=== PATIENT | female | born 1990 | race African-American/Black ===

== ENCOUNTER 2017-06-09 16:37 | Inpatient (IN) | payer OTHER ==
[2017-06-09] VITALS (17 sets, daily range): BP systolic 99–138; BP diastolic 54–80; PULSE 75–115; TEMP 97.9–99
[~2017-06-09] VITALS: Ht 165.1 cm; Wt 106.8 kg
[2017-06-09] MEDS ORDERED: PRENATAL PO (17:11)
[2017-06-09 18:22] LABS: BASO % 0.2 % (0.0-2.0); EOS # 0.1 (0.0-0.7); EOS % 0.9 % (0-4.0); GRAN # 5.3 (1.4-6.5); GRAN % 66.5 % (42.2-75.2); LYMPH % 25.3 % (20.0-51.0); MEAN CELL VOLUME 80 fl (80.0-100.0); MEAN CORPUSCULAR HGB CONC 33 g/dl (33.0-37.0); MEAN PLATELET VOLUME 12.8 fl (7.4-10.4); MONO # 0.5 (0.1-0.6); MONO % 6.7 % (1.7-9.3); PLATELET COUNT 173 K/mm3 (130-400); RED BLOOD COUNT 4.23 M/mm3 (4.10-5.30); REDCELL DISTRIBUTION WIDTH-CV 18.2 % (11.5-14.5)
[2017-06-09 18:26] LABS: HEMATOCRIT 33.8 % (37.0-47.0); HEMOGLOBIN 11.2 g/dl (12.5-16.0); MEAN CORPUSCULAR HEMOGLOBIN 26 pg (27.0-31.0)
[2017-06-10 00:40] VITALS: BP 117/52; PULSE 72
[2017-06-10 05:00] VITALS: BP 108/53; PULSE 73; TEMP 98.1
[2017-06-10 07:34] VITALS: BP 98/46; PULSE 72; TEMP 98.1
[2017-06-10] MEDS ORDERED: IBU800 M1 PO (08:32)
[2017-06-10] MEDS ORDERED: PERCOCET 325 MG1 TA2 PO (08:33)
[2017-06-10 21:45] VITALS: BP 137/66; PULSE 71; TEMP 97.9
[2017-06-11 09:35] VITALS: BP 117/68; PULSE 70; TEMP 98.1
== END 2017-06-11 12:30 | disposition home or self-care (01) | DRG 775 ==
LOC: LDRO 16:37 → LDR 17:53 → LDRO 17:55 → LDR 17:56 → OB 17:56
PROVIDERS: Student in an Organized Health Care Education/Training Program
PROC: 10E0XZZ Delivery of Products of Conception, External Approach (ICD-10-PCS; principal; 2017-06-09)
DX: O70.0 First degree perineal laceration during delivery (principal); O77.0 Labor and delivery complicated by meconium in amniotic fluid; Z3A.39 39 weeks gestation of pregnancy; Z37.0 Single live birth
CPT/HCPCS: J2590; J2795; J7120